=== PATIENT | female | born 1960 | race Caucasian/White ===

== ENCOUNTER 2025-01-02 08:19 | Emergency (ER) | payer MEDICARE ==
--- NOTE | 2025-01-02 08:39 | ERPHSYRPT ---
- History of Present Illness Source: patient Exam Limitations: no limitations Physician History: Patient has diabetes and the complications of it. She has a foot lesion actually on her left second toe. It is on the dorsum. There is an ulcer there now but she said it started about 3 days ago and the toe got red she then developed a vesicular lesion which was fairly large about 1-1/2 cm x 1 cm. It is on the dorsum of the second toe. The capsule had ruptured and some fluid drained out and the patient decided to come in. She said that it happened pretty quickly. She said that 3 to 4 days ago her toes did not look like the way that they do now. There was a question of some possible trauma a couple weeks ago she had a fall and is asking for a x-ray of the toe.She does not have any fever chills nausea vomiting or other systemic symptoms. - Review of Systems Constitutional: No Symptoms Eyes: No Symptoms Respiratory: No Symptoms Neurological: No Symptoms Psychological: No Symptoms - Physical Exam General Appearance: no apparent distress Eyes, Ears, Nose, Throat Exam: normal ENT inspection Ordered Tests: Active Orders 24 hr Category Date Time Status CBC W DIFF Stat Lab 01/02/25 08:30 Ordered CMP Stat Lab 01/02/25 08:31 Ordered CULTURE,WOUND Stat Lab 01/02/25 Ordered SED RATE [Erythrocyte Sedimentation Rate] Stat Lab 01/02/25 08:30 Ordered
--- NOTE | 2025-01-02 08:43 | ERPHSYRPT ---
- History of Present Illness Source: patient Exam Limitations: physical impairment Physician History: Patient claims that the symptoms started about 3 days ago. She said that before that her toe looked okay. She is a diabetic and has the complications from diabetes in her extremities. About 2 or 3 days ago the right Second toe started getting erythematous. She said that a vesicular lesion develop on top of it on the dorsum. She said that it ruptured this morning and she decided to come in. She has not had any fever or chills she has no nausea vomiting or other toxic symptoms. She says it does not hurt but she does not have feeling in that lower extremity. She has not had any toxic or systemic symptoms. Nothing makes the symptoms better or worse. The area is an ulcer now the capsule had ruptured. Allergies/Adverse Reactions: soy Allergy (Verified 01/02/25 08:41) bupropion [From Wellbutrin] Adverse Reaction (Verified 01/02/25 08:41) Corticosteroids (Glucocorticoids) Adverse Reaction (Verified 01/02/25 08:41) gabapentin [From Neurontin] Adverse Reaction (Verified 01/02/25 08:41) lisinopril Adverse Reaction (Verified 01/02/25 08:41) methadone Adverse Reaction (Verified 01/02/25 08:41) metoclopramide [From Reglan] Adverse Reaction (Verified 01/02/25 08:41) - Review of Systems Constitutional: No Symptoms Respiratory: No Symptoms Cardiac: No Symptoms All Other Systems: Reviewed and Negative - Nursing Vital Signs Nursing Vital Signs: Initial Vital Signs Pulse Rate 82 01/02/25 08:30 Blood Pressure 131/81 01/02/25 08:30 O2 Sat by Pulse Oximetry 99 01/02/25 08:30 Pain Scale Pain Intensity 0 - Physical Exam General Appearance: no apparent distress Cardiovascular/Respiratory Exam: chest non-tender, normal breath sounds Hips Exam: bilateral: non-tender, normal inspection, normal range of motion Legs Exam: bilateral leg: non-tender, normal inspection, normal range of motion Knees Exam: bilateral knee: non-tender, normal inspection, normal range of motion Ankle Exam: bilateral ankle: non-tender, normal inspection, normal range of motion Foot Exam: right foot: other (On the second toe there is some erythema from the base of the toe all the way up. There is a ulcer there which was left from a ruptured vesicle. There is no purulent drainage. The center of the ulcer seems somewhat dry. It looks older than 3 days that the patient claims it is. Patient has adequate peripheral vascular function in that toe) Neuro/Tendon Exam: normal motor functions, normal tendon functions, No responds to pain Mental Status Exam: alert, oriented x 3 - Course Nursing assessment & vital signs reviewed: Yes Ordered Tests: Active Orders 24 hr Category Date Time Status TOE(S) (MIN 2 VIEWS) Stat Exams 01/02/25 08:54 Completed CBC W DIFF Stat Lab 01/02/25 08:53 Completed CMP Stat Lab 01/02/25 08:53 Completed CULTURE,WOUND Stat Lab 01/02/25 08:54 Received SED RATE [Erythrocyte Sedimentation Rate] Stat Lab 01/02/25 08:53 Completed Medication Summary Discontinued Medications Generic Name Dose Route Start Last Admin Trade Name Freq PRN Reason Stop Dose Admin Diltiazem HCl 10 mg 01/02/25 10:25 01/02/25 10:28 Diltiazem Hcl Iv 5 Mg/Ml Vial IV 01/02/25 10:26 Not Given STAT ONE Diltiazem HCl 100 mls @ 5 mls/hr 01/02/25 10:25 Cardizem Drip 100 Mg/100 Ml D5w IV 02/01/25 10:24 .Q20H PRN HEART RATE/ A-FIB Protocol 5 MG/HR Lab/Rad Data: Laboratory Result Diagrams 01/02/25 08:53 01/02/25 08:53 Laboratory Results 01/02/25 01/02/25 Range/Units 08:53 08:53 WBC 6.5 (3.98-10.04) x10^3/uL RBC 4.71 (3.93-5.22) x10^6/uL Hgb 12.4 (11.2-15.7) g/dL Hct 39.7 (34.1-44.9) % MCV 84.3 (79.4-94.8) fL MCH 26.3 (25.6-32.2) pg MCHC 31.2 L (32.2-35.5) g/dL RDW 14.5 H (11.7-14.4) % Plt Count 233 (182-369) x10^3/uL MPV 10.3 (9.4-12.3) fL Gran % 54.7 (34.0-71.1) % Immature Gran % (Auto) 1.4 H (0.001-0.429) % Nucleat RBC Rel Count 0.0 (0.00-0.2) % Eos # (Auto) 0.46 H (0.04-0.36) x10^3/uL Immature Gran # (Auto) 0.09 H (0.001-0.031) x10^3u/L Absolute Lymphs (auto) 1.91 (1.18-3.74) x10^3/uL Absolute Monos (auto) 0.42 (0.24-0.86) x10^3/uL Absolute Nucleated RBC 0.00 (0.00-0.012) x10^3u/L Lymphocytes % 29.3 (19.3-51.7) % Monocytes % 6.4 (4.7-12.5) % Eosinophils % 7.1 H (0.7-5.8) % Basophils % 1.1 (0.1-1.2) % Absolute Granulocytes 3.57 (1.56-6.13) x10^3/uL Basophils # 0.07 (0.01-0.08) x10^3/uL ESR 78 H (0-20) mm/hr Sodium 142 (135-145) mmol/L Potassium 3.2 L (3.5-5.1) mmol/L Chloride 101 (98-107) mmol/L Carbon Dioxide 24 (22-30) mmol/L Anion Gap 20.2 H (5-15) MEQ/L BUN 20 H (7-17) mg/dL Creatinine 1.18 H (0.52-1.04) mg/dL Estimated GFR 52.2 ML/MIN Glucose 199 H (74-106) mg/dL Calcium 9.3 (8.4-10.2) mg/dL Total Bilirubin 0.50 (0.2-1.3) mg/dL AST 24 (14-36) U/L ALT 13 (0-35) U/L Alkaline Phosphatase 141 H (38-126) U/L Serum Total Protein 8.1 (6.3-8.2) g/dL Albumin 4.8 (3.5-5.0) g/dL - Progress Progress: unchanged Progress Note: Patient is stable throughout stay. On the differential was cellulitis, ischemic toe, fractured toe. The patient did have a white count. She does not have any toxic or systemic symptoms. I think that we can do an outpatient course of antibiotics on her. Also noted on her x-ray was a fracture at the base of the first phalanx of the toe.It was small and nondisplaced. I think a vernon tape and hard soled shoe will be sufficient for this.She has good capillary refill and I do not think that ischemia is a issue with this patient.I am going to start her on clindamycin and Cipro 01/02/25 10:29 01/02/25 10:48 - Departure Departure Disposition: Home Clinical Impression: Toe fracture, right, Cellulitis in diabetic foot Condition: Stable Critical Care Time: No Referrals: DOCTOR,NO FAMILY [Primary Care Provider, UNKNOWN] - Follow up/PCP as directed Instructions: Toe Fracture ED, Cellulitis (skin infection) in adults - Discharge instructions Additional Instructions: Take medications as directed. Follow-up with your primary doctor in 1 to 2 days. Return if symptoms worsen. Wear the Toe taped for 2 weeks and use hard soled shoes. Follow-up with your primary care doctor or orthopedics for the toe fracture.
[2025-01-02 08:53] LABS: Absolute Neutrophil Ct (ANC) 3.57 x10^3/uL (1.56-6.13); BASOPHIL % 1.1 % (0.1-1.2); Basophil (Absolute #) 0.07 x10^3/uL (0.01-0.08); Eosinophil % 7.1 % (0.7-5.8); Eosinophil (Absolute #) 0.46 x10^3/uL (0.04-0.36); Hematocrit 39.7 % (34.1-44.9); Hemoglobin 12.4 g/dL (11.2-15.7); IMMATURE GRAN # 0.09 x10^3u/L (0.001-0.031); IMMATURE GRAN % 1.4 % (0.001-0.429); Lymphocyte (Absolute #) 1.91 x10^3/uL (1.18-3.74); Lymphocytes % 29.3 % (19.3-51.7); Mean Cell Volume 84.3 fL (79.4-94.8); Mean Corpuscular Hemoglobin 26.3 pg (25.6-32.2); Mean Corpuscular Hgb Concent. 31.2 g/dL (32.2-35.5); Mean Platelet Volume 10.3 fL (9.4-12.3); Monocyte (Absolute #) 0.42 x10^3/uL (0.24-0.86); Monocytes % 6.4 % (4.7-12.5); Neutrophil % 54.7 % (34.0-71.1); Platelet Count 233 x10^3/uL (182-369); Red Blood Count 4.71 x10^6/uL (3.93-5.22); Red Cell Distribution Width 14.5 % (11.7-14.4); White Blood Count 6.5 x10^3/uL (3.98-10.04)
[2025-01-02 08:55] VITALS: RESP 18; TEMP 97.6
[2025-01-02 09:06] LABS: ALBUMIN 4.8 g/dL (3.5-5.0); ANION GAP 20.2 MEQ/L (5-15); BILIRUBIN,TOTAL 0.5 mg/dL (0.2-1.3); Calcium 9.3 mg/dL (8.4-10.2); Creatinine 1 1.18 mg/dL (0.52-1.04); EST GLOMERULAR FILTRATION RATE 52.2 ML/MIN; Potassium 3.2 mmol/L (3.5-5.1); Total Protein 8.1 g/dL (6.3-8.2)
--- NOTE | 2025-01-02 09:21 | XRAY ---
Indication: Trauma. Comparison: None 3 view right 2nd toe demonstrates nondisplaced corner fracture base proximal phalanx, medial aspect with soft tissue swelling. Elsewhere osteopenia, mild 1st MTP degenerative changes, and mild 1st MTP bunion deformity.
[2025-01-02 09:54] LABS: Erythrocyte Sedimentation Rate 78 mm/hr (0-20)
[2025-01-02 10:22] VITALS: O2SAT 98
[2025-01-02] MEDS ORDERED: CARDIZEM DRIP 100 MG/100 ML D5W 100 ML IV PRN (10:25)
[2025-01-02] MEDS: Cardizem IV 50 MG/10 ML IV ONE (10:28)
[2025-01-02 11:15] VITALS: BP 123/73; PULSE 82
== END 2025-01-02 11:20 | disposition home or self-care (01) ==
LOC: ED 08:19
DX: S92.414A Nondisplaced fracture of proximal phalanx of right great toe, initial encounter for closed fracture (principal); E11.628 Type 2 diabetes mellitus with other skin complications; L03.115 Cellulitis of right lower limb; Z79.899 Other long term (current) drug therapy
CPT/HCPCS: 36415; 73660; 80053; 85025; 85652; 86140; 87070; 87077; 87186; 99283; 99284